=== PATIENT | female | born 1935 | race Caucasian/White ===

== ENCOUNTER 2017-07-19 14:30 | Inpatient (IN) | payer MEDICARE ==
[~2017-07-19] VITALS: Ht 165.1 cm; Wt 64.0 kg
[2017-07-19] MEDS ORDERED: normal saline 1000ML IV soln IV ONE (15:10)
[2017-07-19] MEDS ORDERED: acetaminophen 325mg tablet PO STA (15:10)
[2017-07-19] MEDS ORDERED: CefTRIAXone 2gm/NS 100ml IVPB 100 ML IV ONE (15:10)
[2017-07-19 15:47] LABS: BASOPHILS % (AUTO) 0.3 % (0-1); EOSINOPHILS % (AUTO) 0 % (0-6); HEMATOCRIT 25.6 % (35.0-45.0); HEMOGLOBIN 8.5 g/dl (12.0-16.0); LYMPHOCYTES # (AUTO) 0.6 X10'3 (1.1-4.8); LYMPHOCYTES % (AUTO) 4.4 % (21-51); MEAN CORPUSCULAR HEMOGLOBIN 29.5 PG (27.0-31.0); MEAN CORPUSCULAR HGB CONC 33.1 % (33.0-36.5); MEAN PLATELET VOLUME 8.2 FL (7.4-10.4); MONOCYTES # (AUTO) 0.8 X10'3 (0-0.9); MONOCYTES % (AUTO) 5.6 % (2-12); NEUTROPHILS # (AUTO) 12.8 X10'3 (1.8-7.7); NEUTROPHILS % (AUTO) 89.7 % (42-75); PLATELET COUNT 487 X10'3 (140-440); RED BLOOD COUNT 2.87 X10'6 (4.20-5.60); RED CELL DISTRIBUTION WIDTH 16.7 % (11.5-14.5); WHITE BLOOD COUNT 14.3 X10'3 (4.5-11.0)
[2017-07-19 15:54] LABS: PROTHROMBIN TIME 20.3 SECONDS (9.0-12.0)
[2017-07-19 16:01] LABS: ALANINE AMINOTRANSFERASE 51 U/L (12-78); ALBUMIN 2.4 G/DL (3.4-5.0); ALBUMIN/GLOBULIN RATIO 0.5 (1.1-1.5); ALKALINE PHOSPHATASE 170 IU/L (46-116); ANION GAP 9 (8-16); ASPARTATE AMINO TRANSFERASE 31 U/L (10-37); BILIRUBIN,TOTAL 0.3 MG/DL (0.1-1.0); BLOOD UREA NITROGEN 49 MG/DL (7-18); BUN/CREATININE RATIO 23.1 (6.6-38.0); CHLORIDE 103 MMOL/L (99-107); CREATININE 2.12 MG/DL (0.40-0.90); GLUCOSE 166 MG/DL (70-104); SODIUM 140 MMOL/L (135-145); TOTAL PROTEIN 7.6 G/DL (6.4-8.2); eGFR 22 ML/MIN
[2017-07-19 16:22] LABS: CLARITY,URINE CLOUDY (Clear); COLOR,URINE BROWN (Yellow); GLUCOSE, URINE NEGATIVE (Neg); KETONES,URINE NEGATIVE (Neg); LEUKOCYTE ESTERASE ,URINE LARGE (Neg); NITRITES, URINE NEGATIVE (Neg); OCCULT BLOOD,URINE LARGE (Neg); PROTEIN,URINE 100 mg/dl (Neg); UROBILINOGEN,URINE 0.2 E.U/dL (0.2-1.0)
[2017-07-19 16:23] LABS: UA COLLECTION TYPE STRAIGHT CATH
[2017-07-19 16:32] LABS: BACTERIA,URINE NONE SEEN /HPF (Neg); RBC,URINE 0-2 /HPF (0-2); SQUAMOUS EPITHELIAL CELL,UR NONE SEEN /LPF (FEW); WBC,URINE TNTC /HPF (0-4)
[2017-07-19] MEDS ORDERED: ATOR10TA87 PO (16:58)
[2017-07-19] MEDS ORDERED: COU5T PO (16:58)
[2017-07-19] MEDS ORDERED: IRON-12 PO (16:58)
[2017-07-19] MEDS ORDERED: ALFU10TA10 PO (16:58)
[2017-07-19] MEDS ORDERED: CHOL50004 PO (16:58)
[2017-07-19] MEDS ORDERED: HYDR-565 PO (17:01)
[2017-07-19] MEDS ORDERED: ondansetron/PF 4mg/2ml inj IV PRN (17:25)
[2017-07-19] MEDS ORDERED: mag hydrox/Alum hydrox/simeth 30ml oral suspension PO PRN (17:25)
[2017-07-19] MEDS ORDERED: magnesium hydroxide 30ml (MOM) UD suspension PO PRN (17:25)
[2017-07-19] MEDS: normal saline 1000ml 1,000 ML IV SCH (18:10)
[2017-07-19] MEDS ORDERED: heparin, porcine 5000 units/ml vial SQ SCH (20:00)
[2017-07-19 20:30] VITALS: BP 153/74
[2017-07-19] MEDS: tamsulosin 0.4mg capsule PO SCH (20:33)
[2017-07-19] MEDS: warfarin 5mg tablet PO SCH (20:33)
[2017-07-19] MEDS: HYDROcodone/acetaminophen 10/325mg tab PO PRN (20:33)
[2017-07-19] MEDS ORDERED: HYDROmorphone inj. 0.5 MG/0.5 ML DISP.SYRIN IV PRN (21:15)
[2017-07-19] MEDS: HYDROmorphone inj. 0.5 MG/0.5 ML DISP.SYRIN IV PRN (21:58)
[2017-07-19] MEDS: acetaminophen 325mg tablet PO PRN (23:42)
[2017-07-20] VITALS: BP 145/68
[2017-07-20] MEDS: HYDROmorphone inj. 0.5 MG/0.5 ML DISP.SYRIN IV PRN ×5 (01:54→20:34)
[2017-07-20] MEDS: normal saline 1000ml 1,000 ML IV SCH ×3 (03:15→18:00)
[2017-07-20 05:45] LABS: BASOPHILS # (AUTO) 0.1 X10'3 (0-0.2); BASOPHILS % (AUTO) 0.4 % (0-1); EOSINOPHILS # (AUTO) 0.3 X10'3 (0-0.9); EOSINOPHILS % (AUTO) 2.1 % (0-6); HEMATOCRIT 24.8 % (35.0-45.0); HEMOGLOBIN 8.3 g/dl (12.0-16.0); LYMPHOCYTES # (AUTO) 1.5 X10'3 (1.1-4.8); LYMPHOCYTES % (AUTO) 9.9 % (21-51); MEAN CORPUSCULAR HEMOGLOBIN 29.7 PG (27.0-31.0); MEAN CORPUSCULAR HGB CONC 33.6 % (33.0-36.5); MEAN CORPUSCULAR VOLUME 88.5 FL (78-98); MEAN PLATELET VOLUME 8.1 FL (7.4-10.4); MONOCYTES # (AUTO) 1.1 X10'3 (0-0.9); NEUTROPHILS # (AUTO) 12.1 X10'3 (1.8-7.7); NEUTROPHILS % (AUTO) 80.6 % (42-75); PLATELET COUNT 474 X10'3 (140-440); RED CELL DISTRIBUTION WIDTH 16.7 % (11.5-14.5)
[2017-07-20 06:04] LABS: INR 2.2 INR; PROTHROMBIN TIME 21.8 SECONDS (9.0-12.0)
[2017-07-20 06:18] LABS: ALBUMIN 2.2 G/DL (3.4-5.0); ANION GAP 9 (8-16); BLOOD UREA NITROGEN 38 MG/DL (7-18); BUN/CREATININE RATIO 21.7 (6.6-38.0); CALCIUM 9.8 MG/DL (8.5-10.1); CHLORIDE 107 MMOL/L (99-107); CREATININE 1.75 MG/DL (0.40-0.90); GLUCOSE 104 MG/DL (70-104); POTASSIUM 5.1 MMOL/L (3.5-5.1); SODIUM 142 MMOL/L (135-145); TOTAL CARBON DIOXIDE 26.4 MMOL/L (24-32); eGFR 28 ML/MIN
[2017-07-20 07:00] VITALS: BP 132/63
[2017-07-20] MEDS ORDERED: [UNRECOGNIZED DRUG - OTHER] PO SCH (08:00)
[2017-07-20] MEDS ORDERED: IRON CARBONYL PO SCH (08:00)
[2017-07-20] MEDS ORDERED: VIT C PO SCH (08:00)
[2017-07-20] MEDS ORDERED: VIT B12 PO SCH (08:00)
[2017-07-20] MEDS: vitamin D (cholecalciferol) 1,000 unit tablet PO SCH (09:02)
[2017-07-20] MEDS: CefTRIAXone 2gm/NS 100ml IVPB 100 ML IV SCH (09:02)
[2017-07-20] MEDS: atorvastatin 10mg tablet PO SCH (09:02)
[2017-07-20 11:00] VITALS: BP 132/63
[2017-07-20] MEDS: lactobacillus rhamnosus 10,000 MMU CELLS/CAPSULE PO SCH (18:00)
[2017-07-20] MEDS: LACTOSE-FREE FOOD 237ML (BOOST) PO SCH (18:00)
[2017-07-20 20:00] VITALS: BP 149/60
[2017-07-20] MEDS: tamsulosin 0.4mg capsule PO SCH (20:13)
[2017-07-20] MEDS: acetaminophen 325mg tablet PO PRN (20:14)
[2017-07-20] MEDS: warfarin 5mg tablet PO SCH (20:27)
[2017-07-21] VITALS (12 sets, daily range): BP systolic 130–173; BP diastolic 49–80
[2017-07-21] MEDS: HYDROmorphone inj. 0.5 MG/0.5 ML DISP.SYRIN IV PRN ×2 (01:29→07:10)
[2017-07-21] MEDS: normal saline 1000ml 1,000 ML IV SCH (03:04)
[2017-07-21 05:19] LABS: BASOPHILS % (AUTO) 0.2 % (0-1); EOSINOPHILS # (AUTO) 0.2 X10'3 (0-0.9); EOSINOPHILS % (AUTO) 2.6 % (0-6); LYMPHOCYTES # (AUTO) 1.4 X10'3 (1.1-4.8); LYMPHOCYTES % (AUTO) 14.9 % (21-51); MEAN CORPUSCULAR HEMOGLOBIN 29.9 PG (27.0-31.0); MEAN CORPUSCULAR HGB CONC 33.7 % (33.0-36.5); MEAN CORPUSCULAR VOLUME 88.8 FL (78-98); MEAN PLATELET VOLUME 7.9 FL (7.4-10.4); MONOCYTES # (AUTO) 0.7 X10'3 (0-0.9); MONOCYTES % (AUTO) 7.4 % (2-12); NEUTROPHILS # (AUTO) 7.1 X10'3 (1.8-7.7); NEUTROPHILS % (AUTO) 74.9 % (42-75); PLATELET COUNT 385 X10'3 (140-440); RED BLOOD COUNT 2.34 X10'6 (4.20-5.60); RED CELL DISTRIBUTION WIDTH 16.9 % (11.5-14.5); WHITE BLOOD COUNT 9.4 X10'3 (4.5-11.0)
[2017-07-21 05:22] LABS: HEMATOCRIT 20.8 % (35.0-45.0)
[2017-07-21 05:31] LABS: INR 2.7 INR; PROTHROMBIN TIME 26.8 SECONDS (9.0-12.0)
[2017-07-21 05:43] LABS: ALBUMIN 1.7 G/DL (3.4-5.0); ANION GAP 9 (8-16); BLOOD UREA NITROGEN 29 MG/DL (7-18); BUN/CREATININE RATIO 19.6 (6.6-38.0); CHLORIDE 108 MMOL/L (99-107); CREATININE 1.48 MG/DL (0.40-0.90); GLUCOSE 86 MG/DL (70-104); POTASSIUM 4.3 MMOL/L (3.5-5.1); SODIUM 141 MMOL/L (135-145); TOTAL CARBON DIOXIDE 24.1 MMOL/L (24-32); eGFR 34 ML/MIN
[2017-07-21] MEDS: vitamin D (cholecalciferol) 1,000 unit tablet PO SCH (07:09)
[2017-07-21] MEDS: atorvastatin 10mg tablet PO SCH (07:09)
[2017-07-21] MEDS: lactobacillus rhamnosus 10,000 MMU CELLS/CAPSULE PO SCH ×2 (07:09→17:55)
[2017-07-21] MEDS: CefTRIAXone 2gm/NS 100ml IVPB 100 ML IV SCH (07:09)
[2017-07-21] MEDS: LACTOSE-FREE FOOD 237ML (BOOST) PO SCH ×3 (08:34→17:55)
[2017-07-21] MEDS: levoFLOXACIN-Levaquin 500mg/D5 100 ML IV SCH (09:21)
[2017-07-21] MEDS: HYDROcodone/acetaminophen 10/325mg tab PO PRN ×2 (11:53→20:46)
[2017-07-21] MEDS: tamsulosin 0.4mg capsule PO SCH (20:46)
[2017-07-21] MEDS: warfarin 5mg tablet PO SCH (20:46)
[2017-07-21 21:58] LABS: BASOPHILS % (AUTO) 0.4 % (0-1); EOSINOPHILS # (AUTO) 0.1 X10'3 (0-0.9); EOSINOPHILS % (AUTO) 1.3 % (0-6); HEMATOCRIT 28.3 % (35.0-45.0); HEMOGLOBIN 9.4 g/dl (12.0-16.0); LYMPHOCYTES % (AUTO) 9.5 % (21-51); MEAN CORPUSCULAR HGB CONC 33.2 % (33.0-36.5); MEAN CORPUSCULAR VOLUME 87.2 FL (78-98); MEAN PLATELET VOLUME 7.4 FL (7.4-10.4); MONOCYTES # (AUTO) 0.5 X10'3 (0-0.9); MONOCYTES % (AUTO) 5.2 % (2-12); NEUTROPHILS # (AUTO) 8.7 X10'3 (1.8-7.7); NEUTROPHILS % (AUTO) 83.6 % (42-75); PLATELET COUNT 403 X10'3 (140-440); RED BLOOD COUNT 3.25 X10'6 (4.20-5.60); RED CELL DISTRIBUTION WIDTH 18.1 % (11.5-14.5); WHITE BLOOD COUNT 10.4 X10'3 (4.5-11.0)
[2017-07-22] VITALS: BP 157/85
[2017-07-22] MEDS: normal saline 1000ml 1,000 ML IV SCH ×4 (01:39→21:50)
[2017-07-22] MEDS: HYDROcodone/acetaminophen 10/325mg tab PO PRN ×3 (03:35→21:48)
[2017-07-22 05:28] LABS: BASOPHILS % (AUTO) 0.3 % (0-1); EOSINOPHILS # (AUTO) 0.2 X10'3 (0-0.9); EOSINOPHILS % (AUTO) 2.3 % (0-6); HEMATOCRIT 26.3 % (35.0-45.0); LYMPHOCYTES # (AUTO) 1.4 X10'3 (1.1-4.8); LYMPHOCYTES % (AUTO) 16.5 % (21-51); MEAN CORPUSCULAR HEMOGLOBIN 28.6 PG (27.0-31.0); MEAN CORPUSCULAR HGB CONC 34.1 % (33.0-36.5); MEAN CORPUSCULAR VOLUME 83.9 FL (78-98); MEAN PLATELET VOLUME 7.7 FL (7.4-10.4); MONOCYTES # (AUTO) 0.6 X10'3 (0-0.9); MONOCYTES % (AUTO) 6.6 % (2-12); NEUTROPHILS # (AUTO) 6.5 X10'3 (1.8-7.7); NEUTROPHILS % (AUTO) 74.3 % (42-75); PLATELET COUNT 387 X10'3 (140-440); RED BLOOD COUNT 3.13 X10'6 (4.20-5.60); WHITE BLOOD COUNT 8.7 X10'3 (4.5-11.0)
[2017-07-22 05:48] LABS: PROTHROMBIN TIME 29.7 SECONDS (9.0-12.0)
[2017-07-22 06:08] LABS: ALBUMIN 1.7 G/DL (3.4-5.0); ANION GAP 11 (8-16); BLOOD UREA NITROGEN 24 MG/DL (7-18); BUN/CREATININE RATIO 17.3 (6.6-38.0); CALCIUM 9.1 MG/DL (8.5-10.1); CHLORIDE 105 MMOL/L (99-107); CREATININE 1.39 MG/DL (0.40-0.90); GLUCOSE 81 MG/DL (70-104); SODIUM 140 MMOL/L (135-145); TOTAL CARBON DIOXIDE 23.9 MMOL/L (24-32); eGFR 36 ML/MIN
[2017-07-22] MEDS: levoFLOXACIN-Levaquin 500mg/D5 100 ML IV SCH ×2 (07:03→21:45)
[2017-07-22] MEDS: lactobacillus rhamnosus 10,000 MMU CELLS/CAPSULE PO SCH ×2 (07:03→17:39)
[2017-07-22] MEDS: atorvastatin 10mg tablet PO SCH (07:03)
[2017-07-22] MEDS: vitamin D (cholecalciferol) 1,000 unit tablet PO SCH (07:03)
[2017-07-22 08:17] VITALS: BP 155/70
[2017-07-22] MEDS: LACTOSE-FREE FOOD 237ML (BOOST) PO SCH ×3 (08:43→17:51)
[2017-07-22] MEDS ORDERED: carVEDilol 12.5mg tablet PO SCH (09:39)
[2017-07-22 11:00] VITALS: BP 121/77
[2017-07-22] MEDS: HYDROmorphone inj. 0.5 MG/0.5 ML DISP.SYRIN IV PRN (13:32)
[2017-07-22 19:00] VITALS: BP 132/60
[2017-07-22] MEDS: tamsulosin 0.4mg capsule PO SCH (21:46)
[2017-07-22] MEDS: carVEDilol 3.125mg tablet PO SCH (21:46)
[2017-07-22] MEDS: warfarin 5mg tablet PO SCH (21:47)
[2017-07-22 22:52] LABS: OCCULT BLOOD STOOL NEGATIVE (Neg)
[2017-07-23] VITALS: BP 133/69
[2017-07-23] MEDS: HYDROmorphone inj. 0.5 MG/0.5 ML DISP.SYRIN IV PRN (00:12)
[2017-07-23 05:27] LABS: BASOPHILS % (AUTO) 0.2 % (0-1); EOSINOPHILS # (AUTO) 0.2 X10'3 (0-0.9); HEMATOCRIT 27.1 % (35.0-45.0); HEMOGLOBIN 9.2 g/dl (12.0-16.0); LYMPHOCYTES # (AUTO) 1.2 X10'3 (1.1-4.8); LYMPHOCYTES % (AUTO) 15.4 % (21-51); MEAN CORPUSCULAR HEMOGLOBIN 28.9 PG (27.0-31.0); MEAN PLATELET VOLUME 7.3 FL (7.4-10.4); MONOCYTES # (AUTO) 0.6 X10'3 (0-0.9); MONOCYTES % (AUTO) 8.2 % (2-12); NEUTROPHILS # (AUTO) 5.8 X10'3 (1.8-7.7); NEUTROPHILS % (AUTO) 74.2 % (42-75); PLATELET COUNT 408 X10'3 (140-440); RED BLOOD COUNT 3.19 X10'6 (4.20-5.60); RED CELL DISTRIBUTION WIDTH 17.6 % (11.5-14.5); WHITE BLOOD COUNT 7.9 X10'3 (4.5-11.0)
[2017-07-23 05:47] LABS: ALBUMIN 1.7 G/DL (3.4-5.0); ANION GAP 10 (8-16); BLOOD UREA NITROGEN 17 MG/DL (7-18); BUN/CREATININE RATIO 12.4 (6.6-38.0); CALCIUM 8.8 MG/DL (8.5-10.1); CHLORIDE 105 MMOL/L (99-107); CREATININE 1.37 MG/DL (0.40-0.90); GLUCOSE 83 MG/DL (70-104); POTASSIUM 4.1 MMOL/L (3.5-5.1); SODIUM 140 MMOL/L (135-145); TOTAL CARBON DIOXIDE 25.3 MMOL/L (24-32); eGFR 37 ML/MIN
[2017-07-23 05:49] LABS: INR 4.8 INR
[2017-07-23 07:30] VITALS: BP 153/86
[2017-07-23] MEDS: LACTOSE-FREE FOOD 237ML (BOOST) PO SCH ×3 (08:32→18:00)
[2017-07-23] MEDS: lactobacillus rhamnosus 10,000 MMU CELLS/CAPSULE PO SCH ×2 (08:32→16:49)
[2017-07-23] MEDS: carVEDilol 3.125mg tablet PO SCH ×2 (08:33→20:00)
[2017-07-23] MEDS: vitamin D (cholecalciferol) 1,000 unit tablet PO SCH (08:34)
[2017-07-23] MEDS: atorvastatin 10mg tablet PO SCH (08:34)
[2017-07-23] MEDS: HYDROcodone/acetaminophen 10/325mg tab PO PRN ×3 (10:09→19:23)
[2017-07-23 11:15] VITALS: BP 127/65
[2017-07-23] MEDS: normal saline 1000ml 1,000 ML IV SCH (12:50)
[2017-07-23] MEDS: levoFLOXACIN-Levaquin 500mg/D5 100 ML IV SCH (12:51)
[2017-07-23 19:30] VITALS: BP 133/77
[2017-07-23] MEDS: tamsulosin 0.4mg capsule PO SCH (21:03)
[2017-07-24] VITALS: BP 152/77
[2017-07-24] MEDS: normal saline 1000ml 1,000 ML IV SCH ×4 (01:29→21:45)
[2017-07-24] MEDS: HYDROcodone/acetaminophen 10/325mg tab PO PRN ×5 (01:30→22:56)
[2017-07-24 05:06] LABS: BASOPHILS % (AUTO) 0 % (0-1); EOSINOPHILS # (AUTO) 0.2 X10'3 (0-0.9); HEMOGLOBIN 9.5 g/dl (12.0-16.0); LYMPHOCYTES # (AUTO) 1.1 X10'3 (1.1-4.8); LYMPHOCYTES % (AUTO) 13.7 % (21-51); MEAN CORPUSCULAR VOLUME 85.1 FL (78-98); MEAN PLATELET VOLUME 7.2 FL (7.4-10.4); MONOCYTES # (AUTO) 0.7 X10'3 (0-0.9); NEUTROPHILS # (AUTO) 5.8 X10'3 (1.8-7.7); NEUTROPHILS % (AUTO) 74.3 % (42-75); PLATELET COUNT 415 X10'3 (140-440); RED BLOOD COUNT 3.29 X10'6 (4.20-5.60); RED CELL DISTRIBUTION WIDTH 17.7 % (11.5-14.5); WHITE BLOOD COUNT 7.8 X10'3 (4.5-11.0)
[2017-07-24 05:11] LABS: PROTHROMBIN TIME 55.7 SECONDS (9.0-12.0)
[2017-07-24 05:14] LABS: INR 5.7 INR
[2017-07-24 05:22] LABS: ALBUMIN 1.8 G/DL (3.4-5.0); ANION GAP 9 (8-16); BLOOD UREA NITROGEN 14 MG/DL (7-18); BUN/CREATININE RATIO 11.2 (6.6-38.0); CHLORIDE 105 MMOL/L (99-107); CREATININE 1.25 MG/DL (0.40-0.90); GLUCOSE 90 MG/DL (70-104); POTASSIUM 4.6 MMOL/L (3.5-5.1); SODIUM 139 MMOL/L (135-145); TOTAL CARBON DIOXIDE 25.2 MMOL/L (24-32); eGFR 41 ML/MIN
[2017-07-24 07:40] VITALS: BP 143/86
[2017-07-24] MEDS: LACTOSE-FREE FOOD 237ML (BOOST) PO SCH ×3 (08:48→17:56)
[2017-07-24] MEDS: lactobacillus rhamnosus 10,000 MMU CELLS/CAPSULE PO SCH ×2 (08:48→17:33)
[2017-07-24] MEDS: carVEDilol 3.125mg tablet PO SCH ×2 (08:49→21:44)
[2017-07-24] MEDS: atorvastatin 10mg tablet PO SCH (08:49)
[2017-07-24] MEDS: vitamin D (cholecalciferol) 1,000 unit tablet PO SCH (08:50)
[2017-07-24 11:38] VITALS: BP 122/48
[2017-07-24 18:00] VITALS: BP 163/71
[2017-07-24] MEDS: tamsulosin 0.4mg capsule PO SCH (21:44)
[2017-07-25] VITALS: BP 140/80
[2017-07-25] MEDS: HYDROcodone/acetaminophen 10/325mg tab PO PRN ×4 (05:26→22:56)
[2017-07-25 06:19] LABS: PROTHROMBIN TIME 40.7 SECONDS (9.0-12.0)
[2017-07-25 06:42] LABS: INR 4.1 INR
[2017-07-25 07:39] VITALS: BP_SYST 140; BP_SYST 95; BP_DIAS 56; BP_DIAS 69
[2017-07-25] MEDS: normal saline 1000ml 1,000 ML IV SCH ×2 (07:51→17:18)
[2017-07-25] MEDS: vitamin D (cholecalciferol) 1,000 unit tablet PO SCH (07:56)
[2017-07-25] MEDS: lactobacillus rhamnosus 10,000 MMU CELLS/CAPSULE PO SCH ×2 (07:56→17:18)
[2017-07-25] MEDS: LACTOSE-FREE FOOD 237ML (BOOST) PO SCH ×3 (08:00→18:10)
[2017-07-25] MEDS ORDERED: levoFLOXACIN-Levaquin 500mg/D5 100 ML IV SCH (08:00)
[2017-07-25] MEDS: atorvastatin 10mg tablet PO SCH (08:02)
[2017-07-25] MEDS: carVEDilol 3.125mg tablet PO SCH (08:02)
[2017-07-25 11:00] VITALS: BP 137/75
[2017-07-25 18:00] VITALS: BP 155/89
[2017-07-25 19:45] VITALS: BP 142/79
[2017-07-25] MEDS: tamsulosin 0.4mg capsule PO SCH (22:56)
[2017-07-26] VITALS: BP 130/76
[2017-07-26] MEDS: HYDROmorphone inj. 0.5 MG/0.5 ML DISP.SYRIN IV PRN (02:12)
[2017-07-26] MEDS: normal saline 1000ml 1,000 ML IV SCH ×3 (02:22→21:59)
[2017-07-26 03:18] LABS: CLARITY,URINE SLIGHTLY CLOUDY (Clear); COLOR,URINE STRAW (Yellow); GLUCOSE, URINE NEGATIVE (Neg); KETONES,URINE NEGATIVE (Neg); LEUKOCYTE ESTERASE ,URINE SMALL (Neg); NITRITES, URINE NEGATIVE (Neg); OCCULT BLOOD,URINE SMALL (Neg); PROTEIN,URINE TRACE mg/dl (Neg); UROBILINOGEN,URINE 0.2 E.U/dL (0.2-1.0)
[2017-07-26 03:26] LABS: UA COLLECTION TYPE CLN CATCH MIDSTREAM
[2017-07-26 03:28] LABS: BACTERIA,URINE 1+ /HPF (Neg); RBC,URINE 0-2 /HPF (0-2); SQUAMOUS EPITHELIAL CELL,UR FEW /LPF (FEW); WBC CLUMPS,URINE FEW /HPF (NEGATIVE)
[2017-07-26 05:52] LABS: INR 2.5 INR; PROTHROMBIN TIME 24.7 SECONDS (9.0-12.0)
[2017-07-26 08:00] VITALS: BP 136/88
[2017-07-26] MEDS: atorvastatin 10mg tablet PO SCH (08:26)
[2017-07-26] MEDS: lactobacillus rhamnosus 10,000 MMU CELLS/CAPSULE PO SCH ×2 (08:26→17:07)
[2017-07-26] MEDS: vitamin D (cholecalciferol) 1,000 unit tablet PO SCH (08:26)
[2017-07-26] MEDS: HYDROcodone/acetaminophen 10/325mg tab PO PRN ×3 (08:29→21:58)
[2017-07-26] MEDS: LACTOSE-FREE FOOD 237ML (BOOST) PO SCH ×3 (08:30→14:24)
[2017-07-26 11:00] VITALS: BP 105/59
[2017-07-26] MEDS ORDERED: phytonadione inj. 5 MG in normal saline 100ml IV soln 99.5 ML IV ONE (13:05)
[2017-07-26 20:00] VITALS: BP 140/63
[2017-07-26] MEDS: tamsulosin 0.4mg capsule PO SCH (21:58)
[2017-07-27] VITALS (10 sets, daily range): BP systolic 133–164; BP diastolic 60–85
[2017-07-27 05:35] LABS: BASOPHILS % (AUTO) 0.2 % (0-1); EOSINOPHILS # (AUTO) 0.3 X10'3 (0-0.9); EOSINOPHILS % (AUTO) 3.5 % (0-6); HEMATOCRIT 28.1 % (35.0-45.0); HEMOGLOBIN 9.4 g/dl (12.0-16.0); LYMPHOCYTES # (AUTO) 1.4 X10'3 (1.1-4.8); LYMPHOCYTES % (AUTO) 19.2 % (21-51); MEAN CORPUSCULAR HEMOGLOBIN 28.8 PG (27.0-31.0); MEAN CORPUSCULAR HGB CONC 33.4 % (33.0-36.5); MEAN PLATELET VOLUME 7.6 FL (7.4-10.4); MONOCYTES # (AUTO) 0.8 X10'3 (0-0.9); MONOCYTES % (AUTO) 10.1 % (2-12); PLATELET COUNT 442 X10'3 (140-440); RED BLOOD COUNT 3.27 X10'6 (4.20-5.60); RED CELL DISTRIBUTION WIDTH 17.3 % (11.5-14.5); WHITE BLOOD COUNT 7.5 X10'3 (4.5-11.0)
[2017-07-27 05:52] LABS: INR 1.2 INR; PARTIAL THROMBOPLASTIN TIME 39 SECONDS (22-32); PROTHROMBIN TIME 12.2 SECONDS (9.0-12.0)
[2017-07-27 06:10] LABS: ALBUMIN 1.8 G/DL (3.4-5.0); ANION GAP 8 (8-16); BLOOD UREA NITROGEN 16 MG/DL (7-18); BUN/CREATININE RATIO 14.5 (6.6-38.0); CALCIUM 9.2 MG/DL (8.5-10.1); CHLORIDE 105 MMOL/L (99-107); GLUCOSE 79 MG/DL (70-104); POTASSIUM 4.6 MMOL/L (3.5-5.1); SODIUM 141 MMOL/L (135-145); TOTAL CARBON DIOXIDE 28.3 MMOL/L (24-32); eGFR 48 ML/MIN
[2017-07-27] MEDS: lactobacillus rhamnosus 10,000 MMU CELLS/CAPSULE PO SCH ×2 (07:30→17:06)
[2017-07-27] MEDS: vitamin D (cholecalciferol) 1,000 unit tablet PO SCH (08:00)
[2017-07-27] MEDS: LACTOSE-FREE FOOD 237ML (BOOST) PO SCH ×3 (08:00→18:00)
[2017-07-27] MEDS: atorvastatin 10mg tablet PO SCH (09:00)
[2017-07-27] MEDS: normal saline 1000ml 1,000 ML IV SCH (09:02)
[2017-07-27] MEDS ORDERED: levoFLOXACIN 500mg tablet PO SCH (11:00)
[2017-07-27] MEDS: HYDROcodone/acetaminophen 10/325mg tab PO PRN ×2 (14:12→21:25)
[2017-07-27] MEDS ORDERED: LIDOcaine 1.5% w/epinephrine 1:200,000 5ml ampul ONE ×2 (14:16→14:26)
[2017-07-27] MEDS ORDERED: ceFAZolin 1000mg inj ONE (14:16)
[2017-07-27] MEDS ORDERED: cefazolin 1gm/NS 100mL 100 ML IV ONE (14:17)
[2017-07-27] MEDS ORDERED: iohexol 350 MG/ML 50ML vial IV ONE (14:17)
[2017-07-27] MEDS ORDERED: fentaNYL/PF 50MCG/1 ML 2ML syringe ONE ×2 (18:02→18:58)
[2017-07-27] MEDS ORDERED: midazolam 2 mg/2 ml injection ONE ×2 (18:02→18:59)
[2017-07-27] MEDS ORDERED: HYDROcodone/acetaminophen 10/325mg tab PO PRN (20:00)
[2017-07-27] MEDS ORDERED: HYDROcodone/acetaminophen 5mg/325mg tablet PO PRN (20:00)
[2017-07-27] MEDS: tamsulosin 0.4mg capsule PO SCH (21:10)
[2017-07-27] MEDS: carvedilol 6.25mg tablet PO SCH (21:10)
[2017-07-27] MEDS: cefazolin 1gm/NS 100mL 100 ML IV SCH (23:28)
[2017-07-28] VITALS (8 sets, daily range): BP systolic 112–145; BP diastolic 61–85
[2017-07-28] MEDS: normal saline 1000ml 1,000 ML IV SCH ×2 (00:49→11:21)
[2017-07-28] MEDS: HYDROcodone/acetaminophen 10/325mg tab PO PRN ×4 (01:42→17:51)
[2017-07-28] MEDS: cefazolin 1gm/NS 100mL 100 ML IV SCH ×2 (08:08→17:19)
[2017-07-28] MEDS: lactobacillus rhamnosus 10,000 MMU CELLS/CAPSULE PO SCH ×2 (08:21→17:51)
[2017-07-28] MEDS: vitamin D (cholecalciferol) 1,000 unit tablet PO SCH (08:21)
[2017-07-28] MEDS: atorvastatin 10mg tablet PO SCH (08:21)
[2017-07-28] MEDS: carvedilol 6.25mg tablet PO SCH ×2 (08:21→19:35)
[2017-07-28] MEDS: LACTOSE-FREE FOOD 237ML (BOOST) PO SCH ×3 (08:23→17:50)
[2017-07-28] MEDS: levoFLOXACIN 250mg tablet PO SCH (11:18)
[2017-07-28 14:14] LABS: BASOPHILS % (AUTO) 0.1 % (0-1); EOSINOPHILS # (AUTO) 0.1 X10'3 (0-0.9); EOSINOPHILS % (AUTO) 1.5 % (0-6); HEMATOCRIT 29.4 % (35.0-45.0); HEMOGLOBIN 9.9 g/dl (12.0-16.0); LYMPHOCYTES # (AUTO) 1.2 X10'3 (1.1-4.8); LYMPHOCYTES % (AUTO) 12.6 % (21-51); MEAN CORPUSCULAR HEMOGLOBIN 28.9 PG (27.0-31.0); MEAN CORPUSCULAR HGB CONC 33.8 % (33.0-36.5); MEAN CORPUSCULAR VOLUME 85.6 FL (78-98); MEAN PLATELET VOLUME 7.4 FL (7.4-10.4); MONOCYTES # (AUTO) 0.7 X10'3 (0-0.9); MONOCYTES % (AUTO) 7.6 % (2-12); NEUTROPHILS # (AUTO) 7.2 X10'3 (1.8-7.7); NEUTROPHILS % (AUTO) 78.2 % (42-75); PLATELET COUNT 419 X10'3 (140-440); RED BLOOD COUNT 3.44 X10'6 (4.20-5.60); RED CELL DISTRIBUTION WIDTH 17.2 % (11.5-14.5); WHITE BLOOD COUNT 9.3 X10'3 (4.5-11.0)
[2017-07-28 14:28] LABS: INR 1.1 INR; PROTHROMBIN TIME 11.5 SECONDS (9.0-12.0)
[2017-07-28] MEDS: tamsulosin 0.4mg capsule PO SCH (20:36)
[2017-07-28] MEDS ORDERED: warfarin 5mg tablet PO SCH (21:00)
[2017-07-29] MEDS: normal saline 1000ml 1,000 ML IV SCH ×2 (02:32→07:21)
[2017-07-29 03:00] VITALS: BP 164/74
[2017-07-29 06:00] VITALS: BP 131/75
[2017-07-29 06:54] LABS: INR 1.1 INR; PROTHROMBIN TIME 11.7 SECONDS (9.0-12.0)
[2017-07-29] MEDS: LACTOSE-FREE FOOD 237ML (BOOST) PO SCH (08:00)
[2017-07-29] MEDS: carvedilol 6.25mg tablet PO SCH (08:32)
[2017-07-29] MEDS: lactobacillus rhamnosus 10,000 MMU CELLS/CAPSULE PO SCH (08:32)
[2017-07-29] MEDS: atorvastatin 10mg tablet PO SCH (08:33)
[2017-07-29] MEDS: vitamin D (cholecalciferol) 1,000 unit tablet PO SCH (08:33)
[2017-07-29 11:00] VITALS: BP 155/74
[2017-07-29] MEDS: levoFLOXACIN 250mg tablet PO SCH (11:02)
[2017-07-29] MEDS: HYDROcodone/acetaminophen 10/325mg tab PO PRN (11:27)
== END 2017-07-29 13:20 | DRG 871 ==
LOC: ER 14:31 → ED HOLD 17:21 → SUR 3N 20:00 → PCU 3S 07-27 19:40
PROVIDERS: ADMIT Family Medicine; ATTEND Internal Medicine
PROC: 30233N1 Transfusion of Nonautologous Red Blood Cells into Peripheral Vein, Percutaneous Approach (ICD-10-PCS; 2017-07-21)
PROC: 02H63JZ Insertion of Pacemaker Lead into Right Atrium, Percutaneous Approach (ICD-10-PCS; principal; 2017-07-27)
PROC: B5171ZZ Fluoroscopy of Left Subclavian Vein using Low Osmolar Contrast (ICD-10-PCS; 2017-07-27)
PROC: 0JH606Z Insertion of Pacemaker, Dual Chamber into Chest Subcutaneous Tissue and Fascia, Open Approach (ICD-10-PCS; 2017-07-27)
PROC: 02HK3JZ Insertion of Pacemaker Lead into Right Ventricle, Percutaneous Approach (ICD-10-PCS; 2017-07-27)
DX: A41.9 Sepsis, unspecified organism (principal); G93.41 Metabolic encephalopathy; N17.9 Acute kidney failure, unspecified; D68.51 Activated protein C resistance; I48.0 Paroxysmal atrial fibrillation; I49.5 Sick sinus syndrome; D64.81 Anemia due to antineoplastic chemotherapy; N39.0 Urinary tract infection, site not specified; I51.81 Takotsubo syndrome; B95.2 Enterococcus as the cause of diseases classified elsewhere; B96.20 Unspecified Escherichia coli [E. coli] as the cause of diseases classified elsewhere; E78.5 Hyperlipidemia, unspecified; F45.21 Hypochondriasis; Z88.2 Allergy status to sulfonamides; Z79.01 Long term (current) use of anticoagulants; Z79.899 Other long term (current) drug therapy; Z85.51 Personal history of malignant neoplasm of bladder; Z86.711 Personal history of pulmonary embolism; Z92.21 Personal history of antineoplastic chemotherapy; Z92.3 Personal history of irradiation
CPT/HCPCS: 33208; 36415; 71045; 71046; 80048; 80053; 81001; 82272; 83605; 83735; 83880; 84145; 84443; 85025; 85610; 85730; 86885; 86900; 86901; 86920; 87040; 87070; 87077; 87088; 87186; 93005; 93306; 97110; 97116; 97161; 97530; 99152; 99153; 99285; A4414; A4620; A6213; A6258; A6449; C1758; C1785; C1894; C1898; J0690; J0696; J1170; J1956; J2250; J3010; J3430; J3490; J7030; P9016; Q9967

== ENCOUNTER 2017-09-08 13:14 | Inpatient (IN) | payer MEDICARE ==
[~2017-09-08] VITALS: Ht 165.1 cm; Wt 63.0 kg
[~2017-09-08 13:14] MED LIST: ALFU10TA10 PO; ATOR10TA87 PO; CHOL50004 PO; COU5T PO; HYDR-565 PO; IRON-12 PO
[2017-09-08 13:35] LABS: BASOPHILS % (AUTO) 0.1 % (0-1); EOSINOPHILS % (AUTO) 0 % (0-6); HEMATOCRIT 27.3 % (35.0-45.0); HEMOGLOBIN 9.1 g/dl (12.0-16.0); LYMPHOCYTES % (AUTO) 6.1 % (21-51); MEAN CORPUSCULAR HEMOGLOBIN 28.3 PG (27.0-31.0); MEAN CORPUSCULAR HGB CONC 33.5 % (33.0-36.5); MEAN CORPUSCULAR VOLUME 84.6 FL (78-98); MEAN PLATELET VOLUME 6.5 FL (7.4-10.4); MONOCYTES # (AUTO) 0.9 X10'3 (0-0.9); MONOCYTES % (AUTO) 5.3 % (2-12); NEUTROPHILS # (AUTO) 14.3 X10'3 (1.8-7.7); NEUTROPHILS % (AUTO) 88.5 % (42-75); PLATELET COUNT 430 X10'3 (140-440); RED BLOOD COUNT 3.22 X10'6 (4.20-5.60); RED CELL DISTRIBUTION WIDTH 19.4 % (11.5-14.5); WHITE BLOOD COUNT 16.2 X10'3 (4.5-11.0)
[2017-09-08 13:46] LABS: PARTIAL THROMBOPLASTIN TIME 44 SECONDS (22-32); PROTHROMBIN TIME 19.8 SECONDS (9.0-12.0)
[2017-09-08 13:48] LABS: TOTAL CELLS COUNTED 100
[2017-09-08 13:50] LABS: ALANINE AMINOTRANSFERASE 26 U/L (12-78); ALBUMIN 2.5 G/DL (3.4-5.0); ALBUMIN/GLOBULIN RATIO 0.5 (1.1-1.5); ALKALINE PHOSPHATASE 184 IU/L (46-116); ANION GAP 11 (8-16); ANISOCYTOSIS 2+; ASPARTATE AMINO TRANSFERASE 28 U/L (10-37); BILIRUBIN,TOTAL 0.5 MG/DL (0.1-1.0); BLOOD UREA NITROGEN 43 MG/DL (7-18); BUN/CREATININE RATIO 20.1 (6.6-38.0); CALCIUM 10.8 MG/DL (8.5-10.1); CHLORIDE 100 MMOL/L (99-107); CREATININE 2.14 MG/DL (0.40-0.90); GLUCOSE 153 MG/DL (70-104); HYPOCHROMASIA 1+; PLATELET ESTIMATE NORMAL; POLYCHROMASIA 1+; POTASSIUM 4.7 MMOL/L (3.5-5.1); SODIUM 137 MMOL/L (135-145); TOTAL PROTEIN 7.6 G/DL (6.4-8.2); TOXIC GRANULATION 1+; eGFR 22 ML/MIN
[2017-09-08] MEDS ORDERED: CefTRIAXone/D5W-Rocephin 1gm 50 ML IV ONE (15:00)
[2017-09-08] MEDS ORDERED: ondansetron/PF 4mg/2ml inj IV ONE (15:05)
[2017-09-08] MEDS ORDERED: mag hydrox/Alum hydrox/simeth 30ml oral suspension PO PRN (16:30)
[2017-09-08] MEDS ORDERED: acetaminophen 325mg tablet PO PRN (16:30)
[2017-09-08] MEDS ORDERED: HYDROmorphone inj. 0.5 MG/0.5 ML DISP.SYRIN IV PRN (16:30)
[2017-09-08] MEDS ORDERED: morphine 4 MG/ML inj SYRINge IV PRN (16:45)
[2017-09-08] MEDS: normal saline 1000ml 1,000 ML IV SCH (16:47)
[2017-09-08 17:43] LABS: CLARITY,URINE CLOUDY (Clear); GLUCOSE, URINE NEGATIVE (Neg); KETONES,URINE NEGATIVE (Neg); LEUKOCYTE ESTERASE ,URINE LARGE (Neg); NITRITES, URINE POSITIVE (Neg); OCCULT BLOOD,URINE LARGE (Neg); PROTEIN,URINE 100 mg/dl (Neg)
[2017-09-08 17:49] LABS: COLOR,URINE DARK YELLOW (Yellow); UA COLLECTION TYPE FOLEY CATH
[2017-09-08 17:50] LABS: RBC,URINE TNTC /HPF (0-2); WBC,URINE TNTC /HPF (0-4)
[2017-09-08 17:51] LABS: BACTERIA,URINE 3+ /HPF (Neg); MUCUS STRANDS NONE SEEN /LPF (Neg); SQUAMOUS EPITHELIAL CELL,UR NONE SEEN /LPF (FEW); WBC CLUMPS,URINE MANY /HPF (NEGATIVE)
[2017-09-08 19:10] VITALS: BP 131/66
[2017-09-08] MEDS: HYDROcodone/acetaminophen 10/325mg tab PO PRN (19:32)
[2017-09-08] MEDS ORDERED: temazepam 15mg capsule PO PRN (21:00)
[2017-09-08] MEDS: tamsulosin 0.4mg capsule PO SCH (21:25)
[2017-09-08] MEDS: CefTRIAXone 2gm/D5W 50ml 50 ML IV SCH (21:25)
[2017-09-08] MEDS: warfarin 5mg tablet PO SCH (21:25)
[2017-09-09] VITALS: BP 135/51
[2017-09-09] MEDS: HYDROcodone/acetaminophen 10/325mg tab PO PRN ×4 (02:17→19:15)
[2017-09-09 02:19] LABS: BASOPHILS % (AUTO) 0 % (0-1); EOSINOPHILS % (AUTO) 0 % (0-6); HEMATOCRIT 25.5 % (35.0-45.0); HEMOGLOBIN 8.6 g/dl (12.0-16.0); LYMPHOCYTES # (AUTO) 1.7 X10'3 (1.1-4.8); LYMPHOCYTES % (AUTO) 10.1 % (21-51); MEAN CORPUSCULAR HGB CONC 33.7 % (33.0-36.5); MEAN CORPUSCULAR VOLUME 86.1 FL (78-98); MEAN PLATELET VOLUME 7.8 FL (7.4-10.4); MONOCYTES # (AUTO) 1.1 X10'3 (0-0.9); MONOCYTES % (AUTO) 6.3 % (2-12); NEUTROPHILS # (AUTO) 14.3 X10'3 (1.8-7.7); NEUTROPHILS % (AUTO) 83.6 % (42-75); PLATELET COUNT 399 X10'3 (140-440); RED BLOOD COUNT 2.96 X10'6 (4.20-5.60); RED CELL DISTRIBUTION WIDTH 19.5 % (11.5-14.5); WHITE BLOOD COUNT 17.1 X10'3 (4.5-11.0)
[2017-09-09 02:33] LABS: ALANINE AMINOTRANSFERASE 25 U/L (12-78); ALBUMIN 2.4 G/DL (3.4-5.0); ALBUMIN/GLOBULIN RATIO 0.5 (1.1-1.5); ALKALINE PHOSPHATASE 182 IU/L (46-116); ANION GAP 10 (8-16); ASPARTATE AMINO TRANSFERASE 25 U/L (10-37); BILIRUBIN,TOTAL 0.3 MG/DL (0.1-1.0); BLOOD UREA NITROGEN 41 MG/DL (7-18); CALCIUM 10.5 MG/DL (8.5-10.1); CHLORIDE 103 MMOL/L (99-107); CREATININE 1.95 MG/DL (0.40-0.90); GLUCOSE 104 MG/DL (70-104); MAGNESIUM 2.2 MG/DL (1.5-2.4); PHOSPHORUS 3.5 MG/DL (2.3-4.5); POTASSIUM 4.5 MMOL/L (3.5-5.1); SODIUM 140 MMOL/L (135-145); TOTAL CARBON DIOXIDE 27.1 MMOL/L (24-32); TOTAL PROTEIN 7.6 G/DL (6.4-8.2); eGFR 25 ML/MIN
[2017-09-09] MEDS: normal saline 1000ml 1,000 ML IV SCH (04:03)
[2017-09-09 06:00] VITALS: BP 112/54
[2017-09-09] MEDS ORDERED: non-formulary drug (Cholecalciferol (Vitamin D3) 5,000 UNIT) PO SCH (08:00)
[2017-09-09] MEDS ORDERED: alfuzosin 10MG TAB.SR.24H PO SCH (08:00)
[2017-09-09] MEDS: vitamin D (cholecalciferol) 1,000 unit tablet PO SCH (08:42)
[2017-09-09] MEDS: atorvastatin 10mg tablet PO SCH (08:42)
[2017-09-09] MEDS: CefTRIAXone 2gm/D5W 50ml 50 ML IV SCH (08:43)
[2017-09-09 09:06] LABS: INR 2.1 INR; PROTHROMBIN TIME 20.8 SECONDS (9.0-12.0)
[2017-09-09] MEDS: sodium chloride 0.45% 1,000 ML IV SCH ×3 (10:16→20:43)
[2017-09-09 11:00] VITALS: BP 111/53
[2017-09-09] MEDS: Protein Shake (high protein) 240ml (8oz) cup PO SCH ×2 (13:00→18:00)
[2017-09-09 18:30] VITALS: BP 127/63
[2017-09-09] MEDS: lactobacillus rhamnosus 10,000 MMU CELLS/CAPSULE PO SCH (20:43)
[2017-09-09] MEDS: tamsulosin 0.4mg capsule PO SCH (20:43)
[2017-09-09] MEDS: warfarin 5mg tablet PO SCH (20:44)
[2017-09-09 23:30] VITALS: BP 120/59
[2017-09-10] MEDS: sodium chloride 0.45% 1,000 ML IV SCH ×3 (00:52→08:17)
[2017-09-10] MEDS: HYDROcodone/acetaminophen 10/325mg tab PO PRN ×3 (01:24→21:19)
[2017-09-10 04:56] LABS: BASOPHILS % (AUTO) 0.1 % (0-1); EOSINOPHILS # (AUTO) 0.2 X10'3 (0-0.9); EOSINOPHILS % (AUTO) 2.5 % (0-6); HEMOGLOBIN 7.2 g/dl (12.0-16.0); LYMPHOCYTES # (AUTO) 1.5 X10'3 (1.1-4.8); LYMPHOCYTES % (AUTO) 14.9 % (21-51); MEAN CORPUSCULAR HEMOGLOBIN 28.7 PG (27.0-31.0); MEAN CORPUSCULAR HGB CONC 33.2 % (33.0-36.5); MEAN CORPUSCULAR VOLUME 86.4 FL (78-98); MEAN PLATELET VOLUME 7.8 FL (7.4-10.4); MONOCYTES # (AUTO) 0.9 X10'3 (0-0.9); MONOCYTES % (AUTO) 8.9 % (2-12); NEUTROPHILS # (AUTO) 7.3 X10'3 (1.8-7.7); NEUTROPHILS % (AUTO) 73.6 % (42-75); PLATELET COUNT 354 X10'3 (140-440); RED CELL DISTRIBUTION WIDTH 19.4 % (11.5-14.5); WHITE BLOOD COUNT 9.9 X10'3 (4.5-11.0)
[2017-09-10 05:04] LABS: HEMATOCRIT 21.6 % (35.0-45.0)
[2017-09-10 05:42] LABS: ALANINE AMINOTRANSFERASE 26 U/L (12-78); ALBUMIN 1.8 G/DL (3.4-5.0); ALBUMIN/GLOBULIN RATIO 0.5 (1.1-1.5); ALKALINE PHOSPHATASE 165 IU/L (46-116); ANION GAP 7 (8-16); ASPARTATE AMINO TRANSFERASE 27 U/L (10-37); BILIRUBIN,TOTAL 0.2 MG/DL (0.1-1.0); BLOOD UREA NITROGEN 28 MG/DL (7-18); BUN/CREATININE RATIO 19.7 (6.6-38.0); CALCIUM 9.1 MG/DL (8.5-10.1); CHLORIDE 104 MMOL/L (99-107); CREATININE 1.42 MG/DL (0.40-0.90); GLUCOSE 87 MG/DL (70-104); MAGNESIUM 1.8 MG/DL (1.5-2.4); PHOSPHORUS 2.7 MG/DL (2.3-4.5); POTASSIUM 4.1 MMOL/L (3.5-5.1); SODIUM 135 MMOL/L (135-145); TOTAL CARBON DIOXIDE 23.9 MMOL/L (24-32); TOTAL PROTEIN 5.8 G/DL (6.4-8.2); eGFR 35 ML/MIN
[2017-09-10 07:28] VITALS: BP 128/51
[2017-09-10] MEDS: atorvastatin 10mg tablet PO SCH (08:15)
[2017-09-10] MEDS: vitamin D (cholecalciferol) 1,000 unit tablet PO SCH (08:15)
[2017-09-10] MEDS: lactobacillus rhamnosus 10,000 MMU CELLS/CAPSULE PO SCH ×2 (08:15→21:17)
[2017-09-10] MEDS: CefTRIAXone 2gm/D5W 50ml 50 ML IV SCH (08:16)
[2017-09-10] MEDS: Protein Shake (high protein) 240ml (8oz) cup PO SCH ×3 (08:34→18:00)
[2017-09-10] MEDS: normal saline 1000ml 1,000 ML IV SCH ×3 (08:35→21:50)
[2017-09-10] MEDS ORDERED: ciprofloxacin lact 400MG/200ML 200 ML IV SCH ×2 (09:30→20:00)
[2017-09-10] MEDS: ciprofloxacin lact 400MG/200ML 200 ML IV SCH ×2 (10:28→21:15)
[2017-09-10 12:26] VITALS: BP 115/62
[2017-09-10] MEDS: metoprolol tartrate 12.5mg (1/2 tablet) PO SCH ×2 (17:44→21:22)
[2017-09-10 17:45] LABS: HEMATOCRIT 23.6 % (35.0-45.0); HEMOGLOBIN 7.8 g/dl (12.0-16.0); MEAN CORPUSCULAR HEMOGLOBIN 28.2 PG (27.0-31.0); MEAN CORPUSCULAR HGB CONC 33.2 % (33.0-36.5); MEAN CORPUSCULAR VOLUME 84.9 FL (78-98); MEAN PLATELET VOLUME 7.9 FL (7.4-10.4); PLATELET COUNT 409 X10'3 (140-440); RED BLOOD COUNT 2.78 X10'6 (4.20-5.60); RED CELL DISTRIBUTION WIDTH 19.5 % (11.5-14.5); WHITE BLOOD COUNT 9.2 X10'3 (4.5-11.0)
[2017-09-10 18:36] LABS: INR 2.9 INR; PROTHROMBIN TIME 28.8 SECONDS (9.0-12.0)
[2017-09-10 19:00] VITALS: BP 111/68
[2017-09-10] MEDS: tamsulosin 0.4mg capsule PO SCH (21:18)
[2017-09-10 21:20] VITALS: BP 136/77
[2017-09-10] MEDS: ondansetron/PF 4mg/2ml inj IV PRN (21:29)
[2017-09-11] VITALS: BP 112/61
[2017-09-11] MEDS: HYDROcodone/acetaminophen 10/325mg tab PO PRN ×2 (01:20→20:25)
[2017-09-11] MEDS: normal saline 1000ml 1,000 ML IV SCH ×3 (04:05→20:12)
[2017-09-11 05:36] LABS: BASOPHILS # (AUTO) 0.1 X10'3 (0-0.2); BASOPHILS % (AUTO) 0.8 % (0-1); EOSINOPHILS # (AUTO) 0.2 X10'3 (0-0.9); EOSINOPHILS % (AUTO) 2.8 % (0-6); HEMATOCRIT 23.5 % (35.0-45.0); HEMOGLOBIN 7.8 g/dl (12.0-16.0); LYMPHOCYTES # (AUTO) 1.3 X10'3 (1.1-4.8); MEAN CORPUSCULAR HEMOGLOBIN 28.5 PG (27.0-31.0); MEAN CORPUSCULAR VOLUME 86.2 FL (78-98); MEAN PLATELET VOLUME 7.7 FL (7.4-10.4); MONOCYTES # (AUTO) 0.8 X10'3 (0-0.9); MONOCYTES % (AUTO) 10.4 % (2-12); NEUTROPHILS # (AUTO) 5.2 X10'3 (1.8-7.7); PLATELET COUNT 394 X10'3 (140-440); RED BLOOD COUNT 2.73 X10'6 (4.20-5.60); RED CELL DISTRIBUTION WIDTH 19.5 % (11.5-14.5); WHITE BLOOD COUNT 7.6 X10'3 (4.5-11.0)
[2017-09-11 05:47] LABS: PROTHROMBIN TIME 30.1 SECONDS (9.0-12.0)
[2017-09-11 06:14] LABS: % IRON SATURATION 17 % (11-46); IRON 22 UG/DL (49-151); TOTAL IRON BINDING CAPACITY 132 UG/DL (259-388)
[2017-09-11 06:32] LABS: ALANINE AMINOTRANSFERASE 30 U/L (12-78); ALBUMIN 1.8 G/DL (3.4-5.0); ALBUMIN/GLOBULIN RATIO 0.4 (1.1-1.5); ALKALINE PHOSPHATASE 193 IU/L (46-116); ANION GAP 9 (8-16); ASPARTATE AMINO TRANSFERASE 29 U/L (10-37); BILIRUBIN,TOTAL 0.1 MG/DL (0.1-1.0); BLOOD UREA NITROGEN 19 MG/DL (7-18); BUN/CREATININE RATIO 15.1 (6.6-38.0); CHLORIDE 108 MMOL/L (99-107); CREATININE 1.26 MG/DL (0.40-0.90); GLUCOSE 92 MG/DL (70-104); MAGNESIUM 1.7 MG/DL (1.5-2.4); PHOSPHORUS 2.6 MG/DL (2.3-4.5); SODIUM 140 MMOL/L (135-145); TOTAL CARBON DIOXIDE 23.2 MMOL/L (24-32); eGFR 41 ML/MIN
[2017-09-11 06:33] LABS: FERRITIN 1793 NG/ML (8-252)
[2017-09-11 07:00] VITALS: BP 126/83
[2017-09-11] MEDS: Protein Shake (high protein) 240ml (8oz) cup PO SCH ×3 (08:00→20:11)
[2017-09-11] MEDS: diltiazem-NS 100mg/100ml 100 ML IV SCH (09:10)
[2017-09-11] MEDS: lactobacillus rhamnosus 10,000 MMU CELLS/CAPSULE PO SCH ×2 (09:13→20:11)
[2017-09-11] MEDS: atorvastatin 10mg tablet PO SCH (09:13)
[2017-09-11] MEDS: ciprofloxacin lact 400MG/200ML 200 ML IV SCH ×2 (09:16→20:12)
[2017-09-11] MEDS: vitamin D (cholecalciferol) 1,000 unit tablet PO SCH (09:20)
[2017-09-11] MEDS: magnesium hydroxide 30ml (MOM) UD suspension PO PRN (10:04)
[2017-09-11 11:00] VITALS: BP 122/77
[2017-09-11] MEDS: diltiazem SR 60mg capsule (twice daily) PO SCH ×2 (11:35→20:10)
[2017-09-11 15:00] VITALS: BP 114/69
[2017-09-11 18:30] VITALS: BP 111/61
[2017-09-11] MEDS ORDERED: metoprolol tartrate 25mg tablet PO SCH (20:00)
[2017-09-11] MEDS: tamsulosin 0.4mg capsule PO SCH (20:11)
[2017-09-11] MEDS: docusate sod 100mg capsule PO SCH (20:11)
[2017-09-11 22:00] VITALS: BP 146/62
[2017-09-12] MEDS: normal saline 1000ml 1,000 ML IV SCH (00:30)
[2017-09-12 02:00] VITALS: BP 110/52
[2017-09-12] MEDS: diltiazem-NS 100mg/100ml 100 ML IV SCH (05:10)
[2017-09-12 05:25] LABS: BASOPHILS % (AUTO) 0.4 % (0-1); EOSINOPHILS # (AUTO) 0.3 X10'3 (0-0.9); EOSINOPHILS % (AUTO) 2.9 % (0-6); HEMATOCRIT 23.1 % (35.0-45.0); HEMOGLOBIN 7.7 g/dl (12.0-16.0); LYMPHOCYTES # (AUTO) 1.3 X10'3 (1.1-4.8); LYMPHOCYTES % (AUTO) 14.6 % (21-51); MEAN CORPUSCULAR HEMOGLOBIN 28.4 PG (27.0-31.0); MEAN CORPUSCULAR HGB CONC 33.4 % (33.0-36.5); MEAN CORPUSCULAR VOLUME 85.1 FL (78-98); MEAN PLATELET VOLUME 7.4 FL (7.4-10.4); MONOCYTES # (AUTO) 0.9 X10'3 (0-0.9); MONOCYTES % (AUTO) 9.8 % (2-12); NEUTROPHILS # (AUTO) 6.4 X10'3 (1.8-7.7); NEUTROPHILS % (AUTO) 72.3 % (42-75); PLATELET COUNT 426 X10'3 (140-440); RED BLOOD COUNT 2.71 X10'6 (4.20-5.60); RED CELL DISTRIBUTION WIDTH 19.7 % (11.5-14.5); WHITE BLOOD COUNT 8.9 X10'3 (4.5-11.0)
[2017-09-12 05:30] LABS: PROTHROMBIN TIME 30.3 SECONDS (9.0-12.0)
[2017-09-12 05:47] LABS: ALANINE AMINOTRANSFERASE 26 U/L (12-78); ALBUMIN 1.7 G/DL (3.4-5.0); ALBUMIN/GLOBULIN RATIO 0.4 (1.1-1.5); ALKALINE PHOSPHATASE 192 IU/L (46-116); ANION GAP 8 (8-16); ASPARTATE AMINO TRANSFERASE 22 U/L (10-37); BILIRUBIN,TOTAL 0.2 MG/DL (0.1-1.0); BLOOD UREA NITROGEN 13 MG/DL (7-18); BUN/CREATININE RATIO 12.1 (6.6-38.0); CALCIUM 8.7 MG/DL (8.5-10.1); CHLORIDE 108 MMOL/L (99-107); CREATININE 1.07 MG/DL (0.40-0.90); GLUCOSE 92 MG/DL (70-104); MAGNESIUM 1.7 MG/DL (1.5-2.4); PHOSPHORUS 2.5 MG/DL (2.3-4.5); POTASSIUM 4.1 MMOL/L (3.5-5.1); SODIUM 141 MMOL/L (135-145); TOTAL CARBON DIOXIDE 24.7 MMOL/L (24-32); TOTAL PROTEIN 5.8 G/DL (6.4-8.2); eGFR 49 ML/MIN
[2017-09-12 07:24] VITALS: BP 119/62
[2017-09-12] MEDS: ondansetron/PF 4mg/2ml inj IV PRN ×2 (07:59→17:23)
[2017-09-12] MEDS: docusate sod 100mg capsule PO SCH ×3 (08:00→20:00)
[2017-09-12] MEDS: vitamin D (cholecalciferol) 1,000 unit tablet PO SCH (08:01)
[2017-09-12] MEDS: ciprofloxacin lact 400MG/200ML 200 ML IV SCH (08:01)
[2017-09-12] MEDS: lactobacillus rhamnosus 10,000 MMU CELLS/CAPSULE PO SCH ×2 (08:02→20:28)
[2017-09-12] MEDS: diltiazem SR 60mg capsule (twice daily) PO SCH ×2 (08:03→20:27)
[2017-09-12] MEDS: atorvastatin 10mg tablet PO SCH (08:03)
[2017-09-12] MEDS: Protein Shake (high protein) 240ml (8oz) cup PO SCH ×3 (08:04→18:00)
[2017-09-12] MEDS: magnesium hydroxide 30ml (MOM) UD suspension PO PRN (09:45)
[2017-09-12 11:00] VITALS: BP 110/58
[2017-09-12] MEDS: LACTOSE-FREE FOOD 237ML (BOOST) PO SCH ×2 (13:00→18:00)
[2017-09-12] MEDS ORDERED: levalbuterol 0.63mg/3ml nebule IH PRN (13:50)
[2017-09-12] MEDS ORDERED: ipratropium 0.5 MG/2.5ML nebule IH PRN (13:50)
[2017-09-12 14:59] LABS: OCCULT BLOOD STOOL NEGATIVE (Neg)
[2017-09-12 15:00] VITALS: BP 107/40
[2017-09-12 17:30] VITALS: BP 140/60
[2017-09-12] MEDS: tamsulosin 0.4mg capsule PO SCH (20:27)
[2017-09-12] MEDS: HYDROcodone/acetaminophen 10/325mg tab PO PRN (20:40)
[2017-09-12] MEDS: CIPROFLOXACIN IV SCH (21:29)
[2017-09-12] MEDS: D5W IV SCH (21:29)
[2017-09-12 22:00] VITALS: BP 117/54
[2017-09-13] MEDS: diltiazem-NS 100mg/100ml 100 ML IV SCH (01:10)
[2017-09-13 02:00] VITALS: BP 95/51
[2017-09-13 05:31] LABS: BASOPHILS % (AUTO) 0.2 % (0-1); EOSINOPHILS # (AUTO) 0.3 X10'3 (0-0.9); EOSINOPHILS % (AUTO) 2.9 % (0-6); HEMATOCRIT 22.6 % (35.0-45.0); HEMOGLOBIN 7.5 g/dl (12.0-16.0); LYMPHOCYTES # (AUTO) 1.4 X10'3 (1.1-4.8); LYMPHOCYTES % (AUTO) 13.6 % (21-51); MEAN CORPUSCULAR HEMOGLOBIN 28.4 PG (27.0-31.0); MEAN CORPUSCULAR VOLUME 86.1 FL (78-98); MEAN PLATELET VOLUME 7.4 FL (7.4-10.4); MONOCYTES # (AUTO) 0.9 X10'3 (0-0.9); MONOCYTES % (AUTO) 8.9 % (2-12); NEUTROPHILS # (AUTO) 7.5 X10'3 (1.8-7.7); NEUTROPHILS % (AUTO) 74.4 % (42-75); PLATELET COUNT 417 X10'3 (140-440); RED BLOOD COUNT 2.62 X10'6 (4.20-5.60); RED CELL DISTRIBUTION WIDTH 19.6 % (11.5-14.5)
[2017-09-13 05:38] LABS: INR 2.5 INR; PROTHROMBIN TIME 24.7 SECONDS (9.0-12.0)
[2017-09-13 05:50] LABS: ALANINE AMINOTRANSFERASE 27 U/L (12-78); ALBUMIN 1.8 G/DL (3.4-5.0); ALBUMIN/GLOBULIN RATIO 0.4 (1.1-1.5); ALKALINE PHOSPHATASE 206 IU/L (46-116); ANION GAP 7 (8-16); ASPARTATE AMINO TRANSFERASE 25 U/L (10-37); BILIRUBIN,TOTAL 0.3 MG/DL (0.1-1.0); BLOOD UREA NITROGEN 12 MG/DL (7-18); BUN/CREATININE RATIO 10.3 (6.6-38.0); CALCIUM 9.1 MG/DL (8.5-10.1); CHLORIDE 108 MMOL/L (99-107); CREATININE 1.16 MG/DL (0.40-0.90); GLUCOSE 93 MG/DL (70-104); PHOSPHORUS 2.6 MG/DL (2.3-4.5); SODIUM 141 MMOL/L (135-145); TOTAL CARBON DIOXIDE 25.8 MMOL/L (24-32); eGFR 45 ML/MIN
[2017-09-13 07:13] VITALS: BP 118/57
[2017-09-13] MEDS: ondansetron/PF 4mg/2ml inj IV PRN (07:58)
[2017-09-13] MEDS: CIPROFLOXACIN IV SCH (07:59)
[2017-09-13] MEDS: D5W IV SCH (07:59)
[2017-09-13] MEDS: LACTOSE-FREE FOOD 237ML (BOOST) PO SCH ×2 (08:00→13:30)
[2017-09-13] MEDS: docusate sod 100mg capsule PO SCH (08:00)
[2017-09-13] MEDS: HYDROcodone/acetaminophen 10/325mg tab PO PRN ×2 (08:05→15:38)
[2017-09-13] MEDS: vitamin D (cholecalciferol) 1,000 unit tablet PO SCH (08:05)
[2017-09-13] MEDS: diltiazem SR 60mg capsule (twice daily) PO SCH (08:07)
[2017-09-13] MEDS: lactobacillus rhamnosus 10,000 MMU CELLS/CAPSULE PO SCH (08:07)
[2017-09-13] MEDS: atorvastatin 10mg tablet PO SCH (08:07)
[2017-09-13] MEDS: Protein Shake (high protein) 240ml (8oz) cup PO SCH ×2 (08:07→13:00)
[2017-09-13 11:00] VITALS: BP 113/54
[2017-09-13 16:01] VITALS: BP 132/58
[2017-09-13] MEDS ORDERED: warfarin 5mg tablet PO ONE (21:00)
== END 2017-09-13 16:10 | DRG 871 ==
LOC: ER 13:14 → ED HOLD 16:30 → SUR 3N 18:57 → PCU 3S 09-11 10:11
PROVIDERS: ADMIT Internal Medicine; ATTEND Internal Medicine
DX: A41.9 Sepsis, unspecified organism (principal); E43 Unspecified severe protein-calorie malnutrition; N17.9 Acute kidney failure, unspecified; C78.00 Secondary malignant neoplasm of unspecified lung; I48.91 Unspecified atrial fibrillation; C67.9 Malignant neoplasm of bladder, unspecified; E83.52 Hypercalcemia; D64.9 Anemia, unspecified; N39.0 Urinary tract infection, site not specified; E86.0 Dehydration; B95.2 Enterococcus as the cause of diseases classified elsewhere; B96.20 Unspecified Escherichia coli [E. coli] as the cause of diseases classified elsewhere; E78.5 Hyperlipidemia, unspecified; K57.90 Diverticulosis of intestine, part unspecified, without perforation or abscess without bleeding; R62.7 Adult failure to thrive; Z66 Do not resuscitate; Z95.0 Presence of cardiac pacemaker; Z90.49 Acquired absence of other specified parts of digestive tract; Z88.2 Allergy status to sulfonamides; Z79.01 Long term (current) use of anticoagulants; Z86.711 Personal history of pulmonary embolism; Z86.718 Personal history of other venous thrombosis and embolism; Z68.23 Body mass index [BMI] 23.0-23.9, adult
CPT/HCPCS: 36415; 71045; 80053; 81001; 82248; 82272; 82330; 82607; 82728; 82746; 83540; 83550; 83605; 83735; 84100; 84484; 85025; 85027; 85610; 85730; 87040; 87070; 87077; 87088; 87186; 93005; 94640; 94760; 97110; 97116; 97161; 99285; A4315; A6212; A6213; C1758; J0696; J0744; J2270; J2405; J3490; J7030; J7614